=== PATIENT | male | born 1955 | race Caucasian/White ===

== ENCOUNTER 2020-04-30 16:06 | Emergency (ER) | payer MEDICAID, OTHER ==
[~2020-04-30] VITALS: Ht 175.3 cm; Wt 70.5 kg
[~2020-04-30 16:06] MED LIST: ATEN50TA41 PO; GABA600T7 PO; GEMF600T8 PO; HYDR-3240 PO; HYDROCHLOROTH12.5 MG PO; IBUP-1223 PO; POTA20TA89 PO; TRAZ150T62 PO
--- NOTE | 2020-04-30 17:53 | NUR ---
PT AWAKE. FOOD TRAY PROVIDED. .
[2020-04-30 17:55] VITALS: BP 149/82
== END 2020-04-30 18:05 | disposition home or self-care (01) ==
LOC: ED 17:45
DX: F10.220 Alcohol dependence with intoxication, uncomplicated (principal); I10 Essential (primary) hypertension; Y90.0 Blood alcohol level of less than 20 mg/100 ml
CPT/HCPCS: 99281